=== PATIENT | female | born 1955 | race African-American/Black ===

== ENCOUNTER 2016-07-16 14:10 | Emergency (ER) | payer MEDICARE ==
[~2016-07-16] VITALS: Ht 167.6 cm; Wt 99.8 kg
[~2016-07-16 14:10] MED LIST: METF500T4 PO; SIMV40TA3 PO
--- NOTE | 2016-07-16 15:16 | ED.ADGEN ---
Past Medical History Past Medical History: Arthritis, Diabetes-Type II, High Cholesterol Past Surgical History: Appendectomy, Knee Replacement, Tonsillectomy, Tubal ligation, Other Additional Past Surgical Histo: Rotator Cuff Alcohol Use: None Drug Use: None Adult General Chief Complaint Chief Complaint: CHEST PAIN HPI HPI Patient is a 61 year old female presents emergency department complaining of chest pain that she describes as "achy, throbbing" for the last 6 hours or more. Patient denies any associated dyspnea, diaphoresis, nausea, or vomiting. She does report that her dad did have an HI in his 50s. The patient has had a heart catheterization in the past which was negative. She does have hypertension and hypercholesterolemia and type 2 diabetes. She has had no prehospital intervention for her symptoms today. Review of Systems Review of Systems Constitutional: Denies fever or chills. [] Eyes: Denies change in visual acuity. [] HENT: Denies nasal congestion or sore throat. [] Respiratory: Denies cough or shortness of breath. [] Cardiovascular: Denies chest pain or edema. [] GI: Denies abdominal pain, nausea, vomiting, bloody stools or diarrhea. [] : Denies dysuria. [] Musculoskeletal: Denies back pain or joint pain. [] Integument: Denies rash. [] Neurologic: Denies headache, focal weakness or sensory changes. [] Endocrine: Denies polyuria or polydipsia. [] Lymphatic: Denies swollen glands. [] Psychiatric: Denies depression or anxiety. [] Current Medications Current Medications Current Medications Medications (Trade) Dose Ordered Sig/Rocky Start Time Stop Time Status Last Admin Dose Admin Multi-Ingredient Mouthwash/Gargle (Gi Cocktail Single Dose) 15 ml 1X ONCE 07/16/16 16:00 07/16/16 16:01 UNV Allergies Allergies Allergies Coded Allergies Type Severity Reaction Last Updated Verified No Known Drug Allergies 12/27/14 No Physical Exam Physical Exam Constitutional: Well developed, well nourished, no acute distress, non-toxic appearance. [] HENT: Normocephalic, atraumatic, bilateral external ears normal, oropharynx moist, no oral exudates, nose normal. [] Eyes: PERRLA, EOMI, conjunctiva normal, no discharge. [] Neck: Normal range of motion, no tenderness, supple, no stridor. [] Cardiovascular:Heart rate regular rhythm, no murmur [] Lungs & Thorax: Bilateral breath sounds clear to auscultation [] Abdomen: Bowel sounds normal, soft, no tenderness, no masses, no pulsatile masses. [] Skin: Warm, dry, no erythema, no rash. [] Back: No tenderness, no CVA tenderness. [] Extremities: No tenderness, no cyanosis, no clubbing, ROM intact, no edema. [] Neurologic: Alert and oriented X 3, normal motor function, normal sensory function, no focal deficits noted. [] Psychologic: Affect normal, judgement normal, mood normal. [] Current Patient Data Vital Signs Vital Signs Date Time Temp Pulse Resp B/P Pulse Ox O2 Delivery O2 Flow Rate FiO2 07/16/16 14:21 97.9 81 22 132/64 99 97.9 Lab Values Laboratory Tests Test 07/16/16 14:30 White Blood Count 9.4x10^3/uL (4.0-11.0) Red Blood Count 4.69x10^6/uL (3.50-5.40) Hemoglobin 13.5g/dL (12.0-15.5) Hematocrit 40.0% (36.0-47.0) Mean Corpuscular Volume 85fL (79-100) Mean Corpuscular Hemoglobin 29pg (25-35) Mean Corpuscular Hemoglobin Concent 34g/dL (31-37) Red Cell Distribution Width 14.4% (11.5-14.5) Platelet Count 235x10^3/uL (140-400) Neutrophils (%) (Auto) 55% (31-73) Lymphocytes (%) (Auto) 38% (24-48) Monocytes (%) (Auto) 6% (0-9) Eosinophils (%) (Auto) 1% (0-3) Basophils (%) (Auto) 1% (0-3) Neutrophils # (Auto) 5.1x10^3uL (1.8-7.7) Lymphocytes # (Auto) 3.5x10^3/uL (1.0-4.8) Monocytes # (Auto) 0.6x10^3/uL (0.0-1.1) Eosinophils # (Auto) 0.1x10^3/uL (0.0-0.7) Basophils # (Auto) 0.0x10^3/uL (0.0-0.2) Sodium Level 145mmol/L (136-145) Potassium Level 3.7mmol/L (3.5-5.1) Chloride Level 109mmol/L (98-107) H Carbon Dioxide Level 23mmol/L (21-32) Anion Gap 13 (6-14) Blood Urea Nitrogen 10mg/dL (7-20) Creatinine 0.7mg/dL (0.6-1.0) Estimated GFR (Cockcroft-Gault) 103.3 Glucose Level 178mg/dL (70-99) H Calcium Level 9.3mg/dL (8.5-10.1) Total Bilirubin 0.2mg/dL (0.2-1.0) Direct Bilirubin < 0.1mg/dL (0.0-0.2) Aspartate Amino Transferase (AST) 15U/L (15-37) Alanine Aminotransferase (ALT) 17U/L (14-59) Alkaline Phosphatase 88U/L (46-116) Troponin I Quantitative < 0.017ng/mL (0.000-0.055) QB-Nxl-W-Type Natriuretic Peptide 164pg/mL (0-124) H Total Protein 7.3g/dL (6.4-8.2) Albumin 3.6g/dL (3.4-5.0) Lipase 161U/L (73-393) Laboratory Tests 07/16/16 14:30 Laboratory Tests 07/16/16 14:30 EKG EKG EKG interpreted by me, normal sinus rhythm, 70 bpm, no ST segment elevation, normal axis. [] Radiology/Procedures Radiology/Procedures Portable chest, 07/16/2016: History: Substernal chest pain Comparison is made to a study from 03/31/2010. The heart size and pulmonary vascularity are normal. No pulmonary infiltrates are seen. There is no evidence of pleural fluid. Mild spurring is present in the spine. IMPRESSION: No acute cardiopulmonary abnormality is detected. DICTATED and SIGNED BY: CYNTHIA SALDAÑA MD DATE: 07/16/16 5484 CC: CHANDAN OG MD; UNKNOWN PCP NAME ~[] Course & Med Decision Making Course & Med Decision Making Pertinent Labs and Imaging studies reviewed. (See chart for details) Patient has a very reassuring workup here today. She has a previously scheduled appointment with her primary care physician tomorrow. I have asked her to keep that appointment. Her story is very atypical for ACS and she is requesting an antacid and she believes this is heartburn at this time. I have asked her to return emergency department sooner should rubs any new or worsening symptoms Impression: chest pain [] Dragon Disclaimer Dragon Disclaimer This electronic medical record was generated, in whole or in part, using a voice recognition dictation system. CHANDAN OG MD Jul 16, 2016 15:16
[2016-07-16 15:31] LABS: BASO % 1 % (0-3); EOS % 1 % (0-3); HEMOGLOBIN 13.5 g/dL (12.0-15.5); LYMPH # 3.5 x10^3/uL (1.0-4.8); LYMPH % 38 % (24-48); MEAN CORPUSCULAR HEMOGLOBIN 29 pg (25-35); MEAN CORPUSCULAR HGB CONC 34 g/dL (31-37); MEAN CORPUSCULAR VOLUME 85 fL (79-100); MONO % 6 % (0-9); NEUT % 55 % (31-73); PLATELET COUNT 235 x10^3/uL (140-400); RED BLOOD COUNT 4.69 x10^6/uL (3.50-5.40); RED CELL DISTRIBUTION WIDTH 14.4 % (11.5-14.5); WHITE BLOOD COUNT 9.4 x10^3/uL (4.0-11.0)
[2016-07-16 15:41] LABS: ANION GAP 13 (6-14); BLOOD UREA NITROGEN 10 mg/dL (7-20); CALCIUM 9.3 mg/dL (8.5-10.1); CARBON DIOXIDE 23 mmol/L (21-32); CHLORIDE 109 mmol/L (98-107); CREATININE 0.7 mg/dL (0.6-1.0); GFR 103.3; GLUCOSE 178 mg/dL (70-99); POTASSIUM 3.7 mmol/L (3.5-5.1); SODIUM 145 mmol/L (136-145)
--- NOTE | 2016-07-16 15:41 | RAD ---
Portable chest, 07/16/2016: History: Substernal chest pain Comparison is made to a study from 03/31/2010. The heart size and pulmonary vascularity are normal. No pulmonary infiltrates are seen. There is no evidence of pleural fluid. Mild spurring is present in the spine. IMPRESSION: No acute cardiopulmonary abnormality is detected.
[2016-07-16 15:46] LABS: ALBUMIN 3.6 g/dL (3.4-5.0); ALK PHOS 88 U/L (46-116); ALT (SGPT) 17 U/L (14-59); AST (SGOT) 15 U/L (15-37); DIRECT BILIRUBIN < 0.1 mg/dL (0.0-0.2); TOTAL BILIRUBIN 0.2 mg/dL (0.2-1.0); TOTAL PROTEIN 7.3 g/dL (6.4-8.2)
[2016-07-16] MEDS ORDERED: LIDO:MAALOX:DONNATAL 1:1:1 15 ML SINGLE DOSE SWSW ONE (16:00)
[2016-07-16 16:02] VITALS: BP 146/68
--- NOTE | 2016-07-17 06:49 | EKG ---
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
== END 2016-07-16 16:20 | disposition home or self-care (01) ==
LOC: ER 14:10
DX: R07.9 Chest pain, unspecified (principal); M19.90 Unspecified osteoarthritis, unspecified site; E11.9 Type 2 diabetes mellitus without complications; E78.00 Pure hypercholesterolemia, unspecified; I25.2 Old myocardial infarction; I10 Essential (primary) hypertension
CPT/HCPCS: 36415; 71010; 80048; 80076; 83690; 83880; 84484; 85027; 93005; 99285-25

== ENCOUNTER 2016-09-27 07:35 | Emergency (ER) | payer MEDICARE ==
[~2016-09-27] VITALS: Ht 167.6 cm; Wt 99.8 kg
[2016-09-27] MEDS ORDERED: IV NORMAL SALINE 1000ML BAG 1,000 ML IV SCH (07:47)
--- NOTE | 2016-09-27 07:58 | PHYS DOC ---
Past Medical History Past Medical History: Arthritis, Diabetes-Type II, High Cholesterol Past Surgical History: Appendectomy, Knee Replacement, Tonsillectomy, Tubal ligation, Other Additional Past Surgical Histo: Rotator Cuff Alcohol Use: None Drug Use: None Adult General Chief Complaint Chief Complaint: FLANK PAIN HPI HPI Patient is a pleasant 61-year-old diabetic female with a complaint of flank pain over the right that began 2 days ago. She's had a history of flank pain intermittently for years this particular episode of flank pain is more intense experience in the past. It is now more continuous worsening with movement and breathing. She denies any trauma, denies any night sweats, fevers, or weight loss, nausea, vomiting, diarrhea, or difficulty urinating. She denies any hematuria, rashes on her abdomen or back, or pain changed with food. Nothing makes symptoms better. She does have a significant family history of breast cancer with her mother and sister both of whom had metastases to the liver. She is primarily worried about that particular cause of pain. She admits she's been under a great deal of stress over the last several weeks as she just recently buried her son. She is a retired school counselor. Review of Systems Review of Systems Constitutional: Denies fever or chills [] Eyes: Denies change in visual acuity, redness, or eye pain [] HENT: Denies nasal congestion or sore throat [] Respiratory: Denies cough or shortness of breath [] Cardiovascular: No additional information not addressed in HPI [] GI: Patient denies nausea, vomiting, diarrhea or mucus in her stools. : Denies dysuria or hematuria [] Musculoskeletal: Denies back pain or joint pain [] Integument: Denies rash or skin lesions [] Neurologic: Denies headache, focal weakness or sensory changes [] Endocrine: Denies polyuria or polydipsia [] Current Medications Current Medications Current Medications Medications (Trade) Dose Ordered Sig/Rocky Start Time Stop Time Status Last Admin Dose Admin Info (Do NOT chart on this entry -- for MONITORING) 1 each PRN DAILY PRN 09/27/16 08:15 09/29/16 08:14 Iohexol (Omnipaque 300 Mg/ml) 75 ml 1X ONCE 09/27/16 08:00 09/27/16 08:01 DC 09/27/16 08:51 75 ML Sodium Chloride (Normal Saline Flush) 10 ml QSHIFT PRN 09/27/16 08:00 Allergies Allergies Allergies Coded Allergies Type Severity Reaction Last Updated Verified No Known Drug Allergies 12/27/14 No Physical Exam Physical Exam Constitutional: Well developed, well nourished, no acute distress, non-toxic appearance. [] HENT: Normocephalic, atraumatic, bilateral external ears normal, oropharynx moist, no oral exudates, nose normal. [] Eyes: PERRLA, EOMI, conjunctiva normal, no discharge. [] Neck: Normal range of motion, no tenderness, supple, no stridor. [] Cardiovascular:Heart rate regular rhythm, no murmur [] Lungs & Thorax: Bilateral breath sounds clear to auscultation [] Abdomen: Mild tenderness to palpation over the right flank over the lower 11th and 12th rib and lateral liver border. Skin: Warm, dry, no erythema, no rash. [] Back: No tenderness, no CVA tenderness. [] Extremities: No tenderness, no cyanosis, no clubbing, ROM intact, no edema. [] Neurologic: Alert and oriented X 3, normal motor function, normal sensory function, no focal deficits noted. [] Psychologic: Affect normal, judgement normal, mood normal. [] Current Patient Data Vital Signs Vital Signs Date Time Temp Pulse Resp B/P (MAP) Pulse Ox O2 Delivery O2 Flow Rate FiO2 09/27/16 08:09 71 20 145/65 (91) 98 09/27/16 07:50 97.6 Room Air 97.6 Lab Values Laboratory Tests Test 09/27/16 07:42 09/27/16 08:05 Urine Collection Type Unknown Urine Color Yellow Urine Clarity Clear Urine pH 5.0 Urine Specific [place] 1.020 Urine Protein Negative mg/dL (NEG-TRACE) Urine Glucose (UA) Negative mg/dL (NEG) Urine Ketones (Stick) Negative mg/dL (NEG) Urine Blood Small (NEG) Urine Nitrite Negative (NEG) Urine Bilirubin Negative (NEG) Urine Urobilinogen Dipstick 0.2 mg/dL (0.2 mg/dL) Urine Leukocyte Esterase Negative (NEG) Urine RBC Occ /HPF (0-2) Urine WBC 0 /HPF (0-4) Urine Squamous Epithelial Cells Mod /LPF Urine Bacteria Few /HPF (0-FEW) Urine Mucus Marked /LPF White Blood Count 7.3 x10^3/uL (4.0-11.0) Red Blood Count 4.49 x10^6/uL (3.50-5.40) Hemoglobin 13.0 g/dL (12.0-15.5) Hematocrit 38.6 % (36.0-47.0) Mean Corpuscular Volume 86 fL (79-100) Mean Corpuscular Hemoglobin 29 pg (25-35) Mean Corpuscular Hemoglobin Concent 34 g/dL (31-37) Red Cell Distribution Width 14.6 % (11.5-14.5) H Platelet Count 214 x10^3/uL (140-400) Neutrophils (%) (Auto) 52 % (31-73) Lymphocytes (%) (Auto) 39 % (24-48) Monocytes (%) (Auto) 7 % (0-9) Eosinophils (%) (Auto) 1 % (0-3) Basophils (%) (Auto) 0 % (0-3) Neutrophils # (Auto) 3.8 x10^3uL (1.8-7.7) Lymphocytes # (Auto) 2.8 x10^3/uL (1.0-4.8) Monocytes # (Auto) 0.5 x10^3/uL (0.0-1.1) Eosinophils # (Auto) 0.1 x10^3/uL (0.0-0.7) Basophils # (Auto) 0.0 x10^3/uL (0.0-0.2) Sodium Level 136 mmol/L (136-145) Potassium Level 3.3 mmol/L (3.5-5.1) L Chloride Level 103 mmol/L (98-107) Carbon Dioxide Level 20 mmol/L (21-32) L Anion Gap 13 (6-14) Blood Urea Nitrogen 11 mg/dL (7-20) Creatinine 1.0 mg/dL (0.6-1.0) Estimated GFR (Cockcroft-Gault) 68.4 BUN/Creatinine Ratio 11 (6-20) Glucose Level 296 mg/dL (70-99) H Calcium Level 8.5 mg/dL (8.5-10.1) Total Bilirubin 0.3 mg/dL (0.2-1.0) Aspartate Amino Transferase (AST) 15 U/L (15-37) Alanine Aminotransferase (ALT) 17 U/L (14-59) Alkaline Phosphatase 82 U/L (46-116) Creatine Kinase 82 U/L (26-192) Creatine Kinase MB (Mass) < 0.5 ng/mL (0.0-3.6) Creatine Kinase MB Relative Index % (0-4) Troponin I Quantitative < 0.017 ng/mL (0.000-0.055) Total Protein 6.7 g/dL (6.4-8.2) Albumin 3.0 g/dL (3.4-5.0) L Albumin/Globulin Ratio 0.8 (1.0-1.7) L Lipase 127 U/L (73-393) Laboratory Tests 09/27/16 08:05 Laboratory Tests 09/27/16 08:05 EKG EKG [EKG timed 0 8 AM 09/27/[address] Heredia demonstrated normal sinus rhythm with a heart rate of 76 [place] interval of 156 which is within normal limits a QRS duration of 86 ms which is within normal limits QTc is normal no ST segment or T-wave changes consistent with acute coronary event or ischemia otherwise normal looking EKG.] Radiology/Procedures Radiology/Procedures [] PATIENT: ELIJAH CARVAJAL ACCOUNT: [id number] : 1955 LOCATION: ER AGE: 61 SEX: F EXAM STATUS: REG ER ORD. PHYSICIAN: DESIRAE HEREDIA MD REASON: right flank pain PROCEDURE: CT ABD PELV W/ IV CONTRST ONLY Indication: Right flank pain. Axial imaging through the abdomen and pelvis was performed after the administration of intravenous contrast. The liver demonstrates mild diffuse low density consistent with fatty infiltration. The gallbladder is unremarkable. The pancreas and spleen are unremarkable. No adrenal mass is identified. The kidneys are unremarkable. No definite calculi are seen. There is no hydronephrosis. The aorta is nonaneurysmal. The small and large bowel loops are normal caliber. There is no ascites. No inflammatory process is seen. The bladder and uterus are unremarkable. The appendix is not well-visualized and may be surgically absent. No abdominal or pelvic lymphadenopathy is detected. Impression: Fatty infiltration of the liver. No acute feature in the abdomen or pelvis is identified. DICTATED and SIGNED BY: EMILY MARTINEZ MD DATE: 09/27/16 0914 CC: DESIRAE HEREDIA MD; NO PCP ~ Course & Med Decision Making Course & Med Decision Making Pertinent Labs and Imaging studies reviewed. (See chart for details) [Some presents with right flank pain. Differential diagnosis includes although this is not a complete differential diagnosis includes kidney stones, UTI, gallstone pancreatitis, cholelithiasis, cholecystitis, ascending cholangitis, diverticulitis, small bowel resection, ovarian cyst, ovarian cyst rupture, ovarian torsion, liver failure, renal cell carcinoma liver cancer, nonaccidental trauma, peptic ulcer disease.] Patient's labs are unremarkable for the most part she does have an elevated glucose level of 296 likely secondary to her chronic type 2 diabetes for which she is on metformin. Patient's potassium was 3.3 which is mildly low and bicarbonate levels at 20. Patient pain is still resident 6 at 10 despite being offered pain medications patient is declined at this time. Pending CT scan. Time is now 9:[address] scan returns with positive findings of nonalcoholic fatty liver noted on CAT scan. This may be causing patient's symptoms and brought her quadrant pain given family predilection and history also noted in her younger daughter given her hypertension obesity and insulin insensitive diabetes may be concerning. With all the metabolic syndrome which we are increasing her risk for development of fatty infiltration of her liver. Patient and I with family family discussed results and disposition plan. Impression abdominal pain, fatty liver, hypoglycemia. Disposition: Follow-up primary care doctor for hepatic biopsy and ultrasound evaluation of fatty liver. Precautions given asked return for any new or increasing symptoms or she has no questions or concerns. Dragon Disclaimer Dragon Disclaimer This electronic medical record was generated, in whole or in part, using a voice recognition dictation system. Departure Departure Impression: Primary Impression: Right upper quadrant abdominal pain Additional Impression: Hyperglycemia Disposition: 01 HOME, SELF-CARE Condition: GOOD Referrals: UNKNOWN PCP NAME (PCP) Patient Instructions: Abdominal Pain Additional Instructions: Please follow-up with your primary care doctor for continued evaluation of year suspected fatty liver. Please return for any new or increasing pain or any question concerns about treatment. I would encourage use a limited quantity of Tylenol and Motrin to treat her discomfort until you're seen. Problem Qualifiers DESIRAE HEREDIA MD September 27, 2016 07:58
[2016-09-27 07:59] LABS: BILIRUBIN,URINE NEGATIVE (NEG); GLUCOSE,URINE NEGATIVE (NEG); NITRITE,URINE NEGATIVE (NEG); PROTEIN,URINE NEGATIVE (NEG-TRACE); UROBILINOGEN,URINE 0.2 mg/dL (0.2 mg/dL)
[2016-09-27] MEDS ORDERED: IOHEXOL 300 MG/ML 75 ML VIAL IV ONE (08:00)
[2016-09-27] MEDS ORDERED: 0.9 % SODIUM CHLORIDE 10 ML DISP.SYRIN. IV PRN (08:00)
[2016-09-27 08:03] LABS: BACTERIA,URINE FEW /HPF (0-FEW); RBC,URINE OCC /HPF (0-2); WBC,URINE 0 /HPF (0-4)
[2016-09-27 08:04] LABS: SQUAMOUS EPITHELIAL CELL,UR MOD /LPF
[2016-09-27 08:09] VITALS: BP 145/65
[2016-09-27] MEDS ORDERED: CONTRAST GIVEN MC PRN (08:15)
[2016-09-27 08:28] LABS: BASO % 0 % (0-3); EOS % 1 % (0-3); HEMATOCRIT 38.6 % (36.0-47.0); LYMPH # 2.8 x10^3/uL (1.0-4.8); LYMPH % 39 % (24-48); MEAN CORPUSCULAR HEMOGLOBIN 29 pg (25-35); MEAN CORPUSCULAR HGB CONC 34 g/dL (31-37); MEAN CORPUSCULAR VOLUME 86 fL (79-100); MONO % 7 % (0-9); NEUT % 52 % (31-73); PLATELET COUNT 214 x10^3/uL (140-400); RED BLOOD COUNT 4.49 x10^6/uL (3.50-5.40); RED CELL DISTRIBUTION WIDTH 14.6 % (11.5-14.5); WHITE BLOOD COUNT 7.3 x10^3/uL (4.0-11.0)
[2016-09-27 08:30] LABS: CALCIUM 8.5 mg/dL (8.5-10.1); GFR 68.4; POTASSIUM 3.3 mmol/L (3.5-5.1)
[2016-09-27 08:36] LABS: ALBUMIN/GLOBULIN RATIO 0.8 (1.0-1.7); TOTAL BILIRUBIN 0.3 mg/dL (0.2-1.0); TOTAL PROTEIN 6.7 g/dL (6.4-8.2)
[2016-09-27 08:44] LABS: CREATINE KINASE 82 U/L (26-192)
[2016-09-27 08:45] LABS: CKMB MASS < 0.5 ng/mL (0.0-3.6)
--- NOTE | 2016-09-27 09:20 | RAD ---
Indication: Right flank pain. Axial imaging through the abdomen and pelvis was performed after the administration of intravenous contrast. The liver demonstrates mild diffuse low density consistent with fatty infiltration. The gallbladder is unremarkable. The pancreas and spleen are unremarkable. No adrenal mass is identified. The kidneys are unremarkable. No definite calculi are seen. There is no hydronephrosis. The aorta is nonaneurysmal. The small and large bowel loops are normal caliber. There is no ascites. No inflammatory process is seen. The bladder and uterus are unremarkable. The appendix is not well-visualized and may be surgically absent. No abdominal or pelvic lymphadenopathy is detected. Impression: Fatty infiltration of the liver. No acute feature in the abdomen or pelvis is identified.
--- NOTE | 2016-09-27 11:12 | EKG ---
[facility] [address] [place] [address] Test Date: 2016-09-27 Test Time: 08:00:10 Pat Name: ELIJAH CARVAJAL Department: Room: Gender: F Cio: : 1955 Requested By: DESIRAE HEREDIA Order Number: [id number] Reading MD: Clay Lemos Measurements Intervals [place] Rate: 76 P: 41 ID: [id number] QRS: -26 QRSD: 86 T: 22 QT: 402 QTc: 457 Interpretive Statements SINUS RHYTHM Electronically Signed On 10-02-2016 9:16:24 CDT by Clay Lemos
== END 2016-09-27 09:52 | disposition home or self-care (01) ==
LOC: ER 07:35
DX: R10.11 Right upper quadrant pain (principal); E11.65 Type 2 diabetes mellitus with hyperglycemia; M19.90 Unspecified osteoarthritis, unspecified site; E78.00 Pure hypercholesterolemia, unspecified; Z90.49 Acquired absence of other specified parts of digestive tract; Z98.51 Tubal ligation status
CPT/HCPCS: 36415; 74177; 80053; 81001; 82550; 82553; 83690; 84484; 85027; 93005; 96360; 99285; J7030; Q9967

== ENCOUNTER 2019-01-21 08:45 | Emergency (ER) | payer MEDICARE, OTHER ==
[~2019-01-21] VITALS: Ht 167.6 cm; Wt 99.8 kg
[~2019-01-21 08:45] MED LIST changes: +METF500T16 PO; -METF500T4 PO
[2019-01-21 09:20] VITALS: BP 133/55
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
--- NOTE | 2019-01-21 10:25 | RAD ---
3 view left ankle and 3 view left foot HISTORY: Pain after trauma 3 view left ankle: AP lateral oblique views There is some obscuration of bony detail due to overlying cast. The tibiotalar relationship is normal. There is a small avulsion from the tip of the medial malleolus. IMPRESSION: Small avulsion from the tip of the medial malleolus could be acute. 3 views left foot: AP lateral oblique views The visualized osseous structures appear normal. There is some obscuration of bony detail due to overlying cast. IMPRESSION: No acute findings. Electronically signed by: Roque Verdin III, MD (01/21/2019 10:22 AM) [facility]
[2019-01-21] MEDS ORDERED: NAPR500T8 PO (10:31)
== END 2019-01-21 10:49 | disposition home or self-care (01) ==
LOC: ER 08:45
DX: S82.52XA Displaced fracture of medial malleolus of left tibia, initial encounter for closed fracture (principal); M19.90 Unspecified osteoarthritis, unspecified site; E11.9 Type 2 diabetes mellitus without complications; E78.00 Pure hypercholesterolemia, unspecified; Z90.89 Acquired absence of other organs; Z98.51 Tubal ligation status; W22.8XXA Striking against or struck by other objects, initial encounter; Y93.89 Activity, other specified; Y92.89 Other specified places as the place of occurrence of the external cause; Y99.8 Other external cause status
CPT/HCPCS: 29515; 73610; 73630; 99284